=== PATIENT | male | born 1965 | race Caucasian/White ===

== ENCOUNTER 2019-09-10 20:31 | Inpatient (IN) ==
[2019-09-10] MEDS ORDERED: *HR* LORazepam 2 MG/ML VIAL IVP PRN (20:59)
[2019-09-10] MEDS ORDERED: Thiamine (B-1) 100 MG, Folic Acid 1 MG, MVI, adult with vitamin K 10 ML in 0.9 % Sodi... IVPB STA (21:02)
[2019-09-10] MEDS: *HR* LORazepam 2 MG/ML VIAL IVP PRN ×2 (21:30→22:50)
[2019-09-10 21:50] LABS: Basophils % 0.5 %; Red Cell Distribution Width 13.2 % (11.5-14.5)
[2019-09-10 21:52] LABS: Eosinophils % 0.5 %; INR 1.1; Immature Granulocytes % 0.4 % (0-4); Lymphocytes % 19.8 %; Prothrombin Time 12.9 Seconds (9.4-12.1); Segmented Neutrophils % 64.8 %
[2019-09-10 21:57] LABS: Hematocrit 39.6 % (37.5-50.1); Hemoglobin 13.9 g/dL (12.9-16.9); Lymphocytes # 1.1 K/mcL (0.6-4.6); Mean Corpuscular HGB Conc 35.1 g/dL (31.6-35.5); Mean Corpuscular Hemoglobin 33.8 pg (28.0-33.3); Mean Corpuscular Volume 96.4 fL (83.0-100.0); Mean Platelet Volume 9.7 fL (9.4-12.4); Monocytes # 0.8 K/mcL (0.0-1.3); Neutrophils # 3.7 K/mcL (1.6-8.9); Platelet Count 105 K/mcL (140-400); Red Blood Count 4.11 M/mcL (4.19-5.50); White Blood Count 5.7 K/mcL (4.3-11.1)
[2019-09-10 22:07] LABS: Alanine Aminotransferase 143 Units/L (7-52); Albumin 4.4 g/dL (3.5-5.7); Albumin/Globulin Ratio 1.7 (1.1-2.2); Alkaline Phosphatase 80 Units/L (34-104); Aspartate Amino Transferase 160 Units/L (13-39); BUN/Creatinine Ratio 10 (6-26); Bilirubin,Direct 0.6 mg/dL (0.0-0.2); Bilirubin,Indirect 2.8 mg/dL (0.0-1.0); Bilirubin,Total 3.4 mg/dL (0.3-1.0); Blood Urea Nitrogen 9 mg/dL (6-20); Calcium 9.4 mg/dL (8.6-10.3); Carbon Dioxide 23 mEq/L (23-29); Chloride 94 mEq/L (98-107); Ethanol < 10 mg/dL (Less than 10); Globulin 2.6 g/dL (2.4-3.5); Glucose 116 mg/dL (70-105); Osmolality,Calculated 272 (280-300); Potassium 2.9 mEq/L (3.5-5.1); Sodium 131 mEq/L (136-145); eGFR For African Americans > 60 (> 60); eGFR For Non-African Americans > 60 (> 60)
[2019-09-10 22:08] LABS: Troponin I < 0.03 ng/mL (< 0.04)
[2019-09-10 22:17] LABS: Platelet Estimate Slight Decrease (Normal)
[2019-09-10] MEDS ORDERED: Potassium Chloride Elixir 20 MEQ/15 ML UDC PO ONE (22:20)
[2019-09-10] MEDS ORDERED: Potassium Chloride 40 MEQ, Lidocaine 1% 2 ML in 0.9 % Sodium Chloride 500 ML IVPB ONE (22:24)
[2019-09-10 22:30] LABS: Bilirubin,Urine Negative (Negative); Blood,Urine Negative (Negative); Clarity,Urine Clear (Clear); Color,Urine Yellow (Yellow); Glucose,Urine (UA) Normal (Normal); Ketones,Urine Trace mg/dL (Negative); Leukocyte Esterase,Urine Negative (Negative); Nitrite,Urine Negative (Negative); PH,Urine 6.5 pH Units (5.0-8.0); Protein,Urine Negative (Neg-Trace); Urobilinogen,Urine Normal (Normal)
[2019-09-10 22:36] LABS: Amphetamine Screen,Urine Negative ng/mL (Cutoff=1000); Barbiturate Screen,Urine Negative ng/mL (Cutoff=200); Benzodiazepines Screen,Urine Negative ng/mL (Cutoff=200); Cannabinoid Screen,Urine Negative ng/mL (Cutoff = 50); Cocaine Screen,Urine Negative ng/mL (Cutoff= 300); Opiate Screen,Urine Negative ng/mL (Cutoff=300); Phencyclidine Screen,Urine Negative ng/mL (Cutoff=25)
[2019-09-11] MEDS ORDERED: Naloxone 0.4 MG/ML INJ IVP PRN (00:08)
[2019-09-11] MEDS ORDERED: Ondansetron ODT 4 MG TAB.RAPDIS SL PRN (00:08)
[2019-09-11] MEDS ORDERED: 0.9 % Sodium Chloride 1,000 ML IVC SCH (00:15)
[2019-09-11] MEDS: *HR* LORazepam 2 MG/ML VIAL IVP PRN (00:28)
[2019-09-11] MEDS ORDERED: Dexmedetomidine HCl 400 MCG/100 ML MLS IVC ONE (00:57)
[2019-09-11] MEDS ORDERED: Dexmedetomidine HCl 400 MCG/100 ML MLS IVC SCH (01:00)
[2019-09-11] MEDS: Dexmedetomidine HCl 400 MCG/100 ML MLS IVC SCH ×3 (01:18→11:31)
[2019-09-11] MEDS ORDERED: Lactulose 200 GM, Sodium Chloride IRRigation 700 ML RC ONE ×2 (01:20→09:16)
[2019-09-11] MEDS ORDERED: *HR* LORazepam 2 MG/ML VIAL IVP ONE (01:24)
[2019-09-11] MEDS ORDERED: diazePAM 10 MG/2 ML SYRINGE IVP STA (01:38)
[2019-09-11 02:25] LABS: Basophils % 0.7 %; White Blood Count 4.3 K/mcL (4.3-11.1)
[2019-09-11 02:26] LABS: Eosinophils % 0.7 %; Estimated Average Glucose 114 mg/dl; Hemoglobin 12.8 g/dL (12.9-16.9); Immature Granulocytes % 0.2 % (0-4); Immature Platelets 4.8 % (1.1-6.1); Lymphocytes % 15.1 %; Mean Corpuscular HGB Conc 33.7 g/dL (31.6-35.5); Mean Corpuscular Hemoglobin 33.3 pg (28.0-33.3); Mean Platelet Volume 9.8 fL (9.4-12.4); Monocytes # 0.5 K/mcL (0.0-1.3); Monocytes % 12.2 %; Platelet Count 100 K/mcL (140-400); Red Blood Count 3.84 M/mcL (4.19-5.50); Red Cell Distribution Width 13.2 % (11.5-14.5); Segmented Neutrophils % 71.1 %
[2019-09-11 02:41] LABS: Gamma Glutamyl Transpeptidase 394 Units/L (7-64); Lactate Dehydrogenase 290 Units/L (140-271)
[2019-09-11 02:44] LABS: Alanine Aminotransferase 141 Units/L (7-52); Albumin 4.1 g/dL (3.5-5.7); Albumin/Globulin Ratio 1.6 (1.1-2.2); Alkaline Phosphatase 70 Units/L (34-104); Aspartate Amino Transferase 175 Units/L (13-39); BUN/Creatinine Ratio 11 (6-26); Bilirubin,Total 3.3 mg/dL (0.3-1.0); Blood Urea Nitrogen 9 mg/dL (6-20); Calcium 9.3 mg/dL (8.6-10.3); Carbon Dioxide 22 mEq/L (23-29); Chloride 103 mEq/L (98-107); Globulin 2.5 g/dL (2.4-3.5); Glucose 131 mg/dL (70-105); Magnesium 1.8 mg/dL (1.6-2.6); Osmolality,Calculated 284 (280-300); Phosphorous 4.1 mg/dL (2.7-4.5); Potassium 3.6 mEq/L (3.5-5.1); Sodium 137 mEq/L (136-145); Total Protein 6.6 g/dL (6.4-8.9); eGFR For African Americans > 60 (> 60); eGFR For Non-African Americans > 60 (> 60)
[2019-09-11 02:45] LABS: Troponin I < 0.03 ng/mL (< 0.04)
[2019-09-11 03:42] LABS: Lymphocytes # 0.7 K/mcL (0.6-4.6); Neutrophils # 3.1 K/mcL (1.6-8.9)
[2019-09-11] MEDS: Folic Acid 1 MG TABLET PO SCH (09:20)
[2019-09-11] MEDS: Vitamin B Complex/Vit C/Vit E 1 EACH TABLET PO SCH (09:21)
[2019-09-11] MEDS: Thiamine (B-1) 100 MG TABLET PO SCH (09:22)
[2019-09-11 12:31] LABS: Hepatitis B Surface Antigen Nonreactive (Nonreactive)
[2019-09-11] MEDS: 0.9 % Sodium Chloride w KCl 20 MEQ/1,000 ML MLS IVC SCH (12:54)
[2019-09-11 13:00] LABS: Hepatitis B Core IgM Nonreactive (Nonreactive)
[2019-09-11 13:01] LABS: Hepatitis A Antibody IgM Nonreactive (Nonreactive); Hepatitis C Virus Antibody Nonreactive (Nonreactive)
[2019-09-11] MEDS ORDERED: 0.9 % Sodium Chloride 250 ML ONE (13:34)
[2019-09-11 15:58] LABS: Bilirubin,Urine Negative (Negative); Blood,Urine Negative (Negative); Clarity,Urine Cloudy (Clear); Color,Urine Yellow (Yellow); Glucose,Urine (UA) Normal (Normal); Ketones,Urine Negative (Negative); Leukocyte Esterase,Urine Negative (Negative); Nitrite,Urine Negative (Negative); PH,Urine 6.5 pH Units (5.0-8.0); Protein,Urine Negative (Neg-Trace); Specific Gravity,Urine 1.012 (1.010-1.025); Urobilinogen,Urine Normal (Normal)
[2019-09-11 16:01] LABS: Bacteria,Urine None Seen per hpf (None-Few); Hyaline Casts,Urine None Seen per lpf (None-Few); RBC,Urine 0-3 per hpf (0-3); Squamous Epithelial Cell,Urine None Seen per lpf (None-Few); WBC,Urine 0-3 per hpf (0-3)
[2019-09-11] MEDS: *HR* Heparin 5,000 UNIT/ML VIAL SQ SCH (17:14)
[2019-09-12 00:37] LABS: Immature Granulocytes % 0.2 % (0-4); Mean Corpuscular Volume 101.3 fL (83.0-100.0); Red Cell Distribution Width 13.4 % (11.5-14.5)
[2019-09-12 00:38] LABS: Basophils % 0.7 %; Eosinophils # 0.1 K/mcL (0.0-0.6); Eosinophils % 1.4 %; Hematocrit 37.8 % (37.5-50.1); Hemoglobin 12.6 g/dL (12.9-16.9); Lymphocytes # 0.6 K/mcL (0.6-4.6); Lymphocytes % 13.6 %; Mean Corpuscular HGB Conc 33.3 g/dL (31.6-35.5); Mean Corpuscular Hemoglobin 33.8 pg (28.0-33.3); Mean Platelet Volume 9.6 fL (9.4-12.4); Monocytes # 0.4 K/mcL (0.0-1.3); Monocytes % 9.7 %; Neutrophils # 3.2 K/mcL (1.6-8.9); Platelet Count 101 K/mcL (140-400); Red Blood Count 3.73 M/mcL (4.19-5.50); Segmented Neutrophils % 74.4 %; White Blood Count 4.3 K/mcL (4.3-11.1)
[2019-09-12] MEDS: Dexmedetomidine HCl 400 MCG/100 ML MLS IVC SCH ×4 (00:47→21:10)
[2019-09-12] MEDS: 0.9 % Sodium Chloride w KCl 20 MEQ/1,000 ML MLS IVC SCH (00:51)
[2019-09-12 00:54] LABS: BUN/Creatinine Ratio 16 (6-26); Blood Urea Nitrogen 11 mg/dL (6-20); Carbon Dioxide 19 mEq/L (23-29); Chloride 110 mEq/L (98-107); Glucose 104 mg/dL (70-105); Magnesium 1.9 mg/dL (1.6-2.6); Osmolality,Calculated 292 (280-300); Phosphorous 4.2 mg/dL (2.7-4.5); Potassium 3.8 mEq/L (3.5-5.1); Sodium 141 mEq/L (136-145); eGFR For African Americans > 60 (> 60); eGFR For Non-African Americans > 60 (> 60)
[2019-09-12 00:55] LABS: Albumin 3.8 g/dL (3.5-5.7); Albumin/Globulin Ratio 1.7 (1.1-2.2); Bilirubin,Direct 0.6 mg/dL (0.0-0.2); Bilirubin,Indirect 2.1 mg/dL (0.0-1.0); Bilirubin,Total 2.7 mg/dL (0.3-1.0); Globulin 2.3 g/dL (2.4-3.5); Total Protein 6.1 g/dL (6.4-8.9)
[2019-09-12] MEDS ORDERED: 0.9 % Sodium Chloride 250 ML ONE (05:31)
[2019-09-12] MEDS: *HR* Heparin 5,000 UNIT/ML VIAL SQ SCH ×2 (05:35→17:06)
[2019-09-12] MEDS: Thiamine (B-1) 100 MG TABLET PO SCH (08:35)
[2019-09-12] MEDS: Vitamin B Complex/Vit C/Vit E 1 EACH TABLET PO SCH (08:35)
[2019-09-12] MEDS: Folic Acid 1 MG TABLET PO SCH (08:35)
[2019-09-12] MEDS ORDERED: Nicotine 2 MG GUM BC PRN (10:56)
[2019-09-12] MEDS: Nicotine 14 MG PATCH.TD24 TD SCH (12:07)
[2019-09-12] MEDS: *HR* LORazepam 2 MG/ML VIAL IVP PRN (22:45)
[2019-09-13 04:40] LABS: Hemoglobin 12.6 g/dL (12.9-16.9); Mean Corpuscular HGB Conc 33.2 g/dL (31.6-35.5); Mean Corpuscular Hemoglobin 32.6 pg (28.0-33.3); Mean Corpuscular Volume 98.2 fL (83.0-100.0); Mean Platelet Volume 9.9 fL (9.4-12.4); Platelet Count 109 K/mcL (140-400); Red Blood Count 3.87 M/mcL (4.19-5.50); Red Cell Distribution Width 13.2 % (11.5-14.5); White Blood Count 4.1 K/mcL (4.3-11.1)
[2019-09-13 05:01] LABS: Alanine Aminotransferase 176 Units/L (7-52); Albumin 3.7 g/dL (3.5-5.7); Albumin/Globulin Ratio 1.5 (1.1-2.2); Alkaline Phosphatase 80 Units/L (34-104); Aspartate Amino Transferase 145 Units/L (13-39); BUN/Creatinine Ratio 10 (6-26); Bilirubin,Total 1.9 mg/dL (0.3-1.0); Blood Urea Nitrogen 7 mg/dL (6-20); Calcium 8.9 mg/dL (8.6-10.3); Carbon Dioxide 23 mEq/L (23-29); Chloride 101 mEq/L (98-107); Globulin 2.4 g/dL (2.4-3.5); Glucose 100 mg/dL (70-105); Osmolality,Calculated 276 (280-300); Potassium 3.1 mEq/L (3.5-5.1); Sodium 134 mEq/L (136-145); Total Protein 6.1 g/dL (6.4-8.9); eGFR For African Americans > 60 (> 60); eGFR For Non-African Americans > 60 (> 60)
[2019-09-13] MEDS: *HR* Heparin 5,000 UNIT/ML VIAL SQ SCH ×2 (05:56→16:39)
[2019-09-13] MEDS: Dexmedetomidine HCl 400 MCG/100 ML MLS IVC SCH (07:06)
[2019-09-13] MEDS: Nicotine 14 MG PATCH.TD24 TD SCH (09:16)
[2019-09-13] MEDS: Folic Acid 1 MG TABLET PO SCH (09:16)
[2019-09-13] MEDS: Thiamine (B-1) 100 MG TABLET PO SCH (09:16)
[2019-09-13] MEDS: Vitamin B Complex/Vit C/Vit E 1 EACH TABLET PO SCH (09:16)
[2019-09-13] MEDS: *HR* LORazepam 2 MG/ML VIAL IVP PRN ×2 (11:29→19:35)
[2019-09-13] MEDS: Lactulose Oral Soln 20 GM/30 ML UDC PO SCH (13:06)
[2019-09-13] MEDS: lisinopriL 20 MG TABLET PO SCH (14:53)
[2019-09-14] MEDS: *HR* Heparin 5,000 UNIT/ML VIAL SQ SCH (05:21)
[2019-09-14 05:35] LABS: Hemoglobin 12.2 g/dL (12.9-16.9); Immature Platelets 5.2 % (1.1-6.1); Mean Corpuscular Hemoglobin 32.6 pg (28.0-33.3); Mean Corpuscular Volume 98.9 fL (83.0-100.0); Mean Platelet Volume 9.8 fL (9.4-12.4); Red Blood Count 3.74 M/mcL (4.19-5.50); Red Cell Distribution Width 13.5 % (11.5-14.5); White Blood Count 3.6 K/mcL (4.3-11.1)
[2019-09-14 05:51] LABS: BUN/Creatinine Ratio 10 (6-26); Blood Urea Nitrogen 7 mg/dL (6-20); Calcium 9.1 mg/dL (8.6-10.3); Carbon Dioxide 24 mEq/L (23-29); Chloride 104 mEq/L (98-107); Glucose 106 mg/dL (70-105); Osmolality,Calculated 278 (280-300); Potassium 3.7 mEq/L (3.5-5.1); Sodium 135 mEq/L (136-145); eGFR For African Americans > 60 (> 60); eGFR For Non-African Americans > 60 (> 60)
[2019-09-14 07:51] VITALS: BP 144/83
[2019-09-14] MEDS: Folic Acid 1 MG TABLET PO SCH (08:14)
[2019-09-14] MEDS: Thiamine (B-1) 100 MG TABLET PO SCH (08:14)
[2019-09-14] MEDS: Lactulose Oral Soln 20 GM/30 ML UDC PO SCH (08:14)
[2019-09-14] MEDS: lisinopriL 20 MG TABLET PO SCH (08:14)
[2019-09-14] MEDS: Nicotine 14 MG PATCH.TD24 TD SCH (08:14)
[2019-09-14] MEDS: Vitamin B Complex/Vit C/Vit E 1 EACH TABLET PO SCH (08:14)
== END 2019-09-14 13:20 | disposition other institution (70) | DRG 897 ==
LOC: EMEROOARM 20:31 → 3NENU 20:31 → SUATTDRO 09-11 00:15 → 3NENU 09-11 01:01 → SUATTDRO 09-11 14:57
PROVIDERS: ADMIT Family Medicine; ATTEND Internal Medicine